=== PATIENT | male | born 1965 | race Caucasian/White ===

== ENCOUNTER 2017-05-22 07:40 | Observation (INO) | payer BC ==
[2017-05-21 12:16] LABS: BASOPHILS # (AUTO) 0.1 (0.0-0.1); BASOPHILS % 0.7 % (0.0-1.0); EOSINOPHILS # (AUTO) 0.3 (0.0-0.4); HEMATOCRIT 48.4 % (38.2-49.6); HEMOGLOBIN 16.9 g/dL (14.0-18.0); LYMPHOCYTES # (AUTO) 2.1 (1.0-3.2); LYMPHOCYTES % 20.2 % (18.0-39.1); MEAN CORPUSCULAR HEMOGLOBIN 32.6 pg (28-32); MEAN CORPUSCULAR HGB CONC 34.9 g/dL (31-35); MEAN CORPUSCULAR VOLUME 93.3 fL (81-99); MONOCYTES # (AUTO) 0.8 (0.2-0.8); MONOCYTES % 7.7 % (4.4-11.3); NEUTROPHILS # (AUTO) 6.9 (2.1-6.9); NEUTROPHILS % 67.8 % (38.7-80.0); PLATELET COUNT 264 x10e3/uL (140-360); RED BLOOD COUNT 5.19 x10e6/uL (4.3-5.7); RED CELL DISTRIBUTION WIDTH 12.5 % (11.7-14.4)
[2017-05-21 12:33] LABS: INR 1.05; PROTHROMBIN TIME 12.9 seconds (11.9-14.5)
[2017-05-21 12:34] LABS: PARTIAL THROMBOPLASTIN TIME 27.2 seconds (23.8-35.5)
--- NOTE | 2017-05-21 12:36 | Diagnostic Imaging Report ---
PROCEDURE: Frontal and lateral views of the chest. COMPARISON: None. INDICATIONS: PRE-OP FINDINGS: Lines/tubes: None. Lungs: The lungs are well inflated and clear. There is no evidence of pneumonia or pulmonary edema. Pleura: There is no pleural effusion or pneumothorax. Heart and mediastinum: The heart and the mediastinum are normal. Bones: No acute bony abnormality. IMPRESSION: 1. No acute cardiopulmonary disease. Isaac Hogan M.D. Dictated by: Isaac Hogan M.D. on 05/21/2017 at 12:36 Electronically approved by: Isaac Hogan M.D. on 05/21/2017 at 12:36
[2017-05-21 12:37] LABS: ANION GAP 14.3 mmol/L (8-16); BLOOD UREA NITROGEN 9 mg/dL (7-26); BUN/CREATININE RATIO 12 (6-25); CALCIUM 9.6 mg/dL (8.4-10.2); CARBON DIOXIDE 28 mmol/L (22-29); CHLORIDE 103 mmol/L (98-107); CREATININE, SERUM 0.77 mg/dL (0.72-1.25); EST GLOMERULAR FILTRATION RATE > 60 ML/MIN (60-); GLUCOSE 101 mg/dL (74-118); POTASSIUM 5.3 mmol/L (3.5-5.1); SODIUM 140 mmol/L (136-145)
[~2017-05-22] VITALS: Ht 182.9 cm; Wt 81.7 kg
[~2017-05-22 07:40] MED LIST: ACETAMINOPHEN 1000 MG/100 ML 100 ML IV ONE; LIDOCAINE HCL (LTA) 4 ML SOLN ONE; METHYLPREDNISOL40 MG PO; TYLENOL # 31 EA PO
--- OUTSIDE RECORDS SUMMARY | 2017-05-22 07:43 | XMS REPORT ---
Author Author [facility] Address Unknown Phone Unavailable Care Team Providers Care Supervising Floorperson Name Role Phone ANTONINO ALONSO Unavailable Unavailable Problems This patient has no known problems. Allergies, Adverse Reactions, Alerts This patient has no known allergies or adverse reactions. Medications This patient has no known medications. Results Test Description Test Time Test Comments Text Results Atomic Results Result Comments CHEST 2 VIEWS [place] [id number] [place] [id number] Patient Name: SONNY WILKERSON JR MR #: [id number] : 1965 Age/Sex: 51/M Req #: [id number] Adm Physician: Ordered by: ANTONINO ALONSO MD Report #: [id number] Location: OR Room/Bed: Procedure: [id number] DX/CHEST 2 VIEWS Exam Date: 05/21/17 Exam Time: 1200 REPORT STATUS: Signed PROCEDURE: Frontal and lateral views of the chest. COMPARISON: None. INDICATIONS: PRE-OP FINDINGS: Lines/tubes: None. Lungs: The lungs are well inflated and clear. There is no evidence of pneumonia or pulmonary edema. Pleura: There is no pleural effusion or pneumothorax. Heart and mediastinum: The heart and the mediastinum are normal. Bones: No acute bony abnormality. IMPRESSION: 1. No acute cardiopulmonary disease. Isaac Hogan M.D. Dictated by: Isaac Hogan M.D. on 05/21/2017 at 12:36 Electronically approved by: Isaac Hogan M.D. on 05/21/2017 at 12:36 Dictated By: SARAH HOGAN MD, MD [id number] COPY TO: ANTONINO ALONSO MD
[2017-05-22] MEDS ORDERED: GELATIN SPONGE SZ 100 ONE (07:50)
[2017-05-22] MEDS ORDERED: THROMBIN FOR SOLN 5,000 UNIT VIAL ONE (07:50)
[2017-05-22] MEDS ORDERED: BACITRACIN 50,000 UNIT VIAL ONE (07:50)
[2017-05-22] MEDS ORDERED: BUPIVACAINE 0.5%/EPI 30 ML SDV INJ ONE (07:50)
[2017-05-22] MEDS ORDERED: CEFAZOLIN SOD 1 GM VIAL ONE (07:59)
[2017-05-22] MEDS ORDERED: PROMETHAZINE HCL (IM) 25 MG/ML VIAL IM PRN (11:00)
[2017-05-22] MEDS ORDERED: ZOLPIDEM TARTRATE 5 MG TAB PO PRN (11:00)
[2017-05-22] MEDS ORDERED: ACETAMINOPHEN 325 MG TAB PO PRN (11:00)
[2017-05-22] MEDS ORDERED: MAGNESIUM/ALUMINUM/SIMETHICONE 30 ML UDC PO PRN (11:00)
[2017-05-22] MEDS ORDERED: CEPACOL SORE THROAT LOZENGES PO PRN (11:00)
[2017-05-22] MEDS ORDERED: MORPHINE SULFATE 2 MG/ML SYR IM PRN (11:00)
[2017-05-22] MEDS: DEXAMETHASONE SOD PHOS INJ 4 MG/ML VIAL IV SCH ×3 (12:16→23:58)
[2017-05-22] MEDS: OXYCODONE/ACETAMINOPHEN 5-325 1 EACH TABLET PO PRN (12:16)
[2017-05-22] MEDS: LACTATED RINGER'S 1,000 ML IV SCH ×2 (12:16→22:51)
[2017-05-22 12:20] VITALS: BP 132/74
[2017-05-22 12:35] VITALS: BP 132/74
[2017-05-22] MEDS ORDERED: CEFAZOLIN SOD 1 GM/NS 50ML 50 ML IV SCH (14:00)
--- NOTE | 2017-05-22 14:46 | Operative Report ---
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 POSTOPERATIVE DIAGNOSIS: C5-6 disk herniation and spondylosis with radiculopathy, M50.122. PROCEDURES 1. C5-6 anterior cervical diskectomy and microsurgical osteophyte resection and allograft fusion, 95085. 2. Preparation of MTF cortical cancellous allograft, 16148. 3. C5-6 anterior cervical plating with Synthes ZPN plate, 52006. ANESTHESIA: General. INDICATIONS: Patient is a 51-year-old man who presents with C5-6 spondylosis and chronic disk herniation and bilateral foraminal stenosis and was taken to the operating room for C5-6 anterior cervical decompression and fusion. DESCRIPTION OF PROCEDURE: After induction of general anesthesia, the patient was placed on the operating table in supine position. The right side of the neck was prepped and draped in sterile fashion. The fluoroscopic C-arm was positioned in cross-table lateral orientation. A transverse incision was created on the right side of the neck superimposed on the C5-6 disk space as determined by fluoroscopy. The platysma was divided in line with the incision. A subplatysmal dissection was carried out. An avascular plane of dissection was developed medial to sternocleidomastoid muscle and was followed medial to the carotid sheath to the anterior border of cervical spine. The deep cervical fascia was opened. The esophagus was retracted to the left. The attachments of longus coli muscles to anterolateral aspects of vertebral bodies of C5 and C6 were divided. The anterior longitudinal ligament was resected. Sebring posts were inserted into C5 and C6. The Sebring distractor was used distract the disk space. Anterior annulus of disk was incised with #11 blade. The contents of the disk were thoroughly evacuated with angled curettes and pituitary rongeurs. The posterior osteophytes were drilled with a 2-mm cutting bur until they were completely removed. The posterior annulus of the disk, herniated disk material, and the posterior longitudinal ligament were resected layer by layer until the dura was fully exposed and decompressed. The medial aspects of uncinate processes were resected to expose and decompress the origins of the C6 nerve roots bilaterally. After satisfactory decompression had been achieved, the endplates were prepared for fusion. The disk space was sized and found to be 8 mm in height. A piece of MTF cortical cancellous allograft measuring 8 mm in thickness was selected and prepared in saline and loaded onto a Synthes ZPN plate. The construct was inserted into the C5-6 disk space under lateral fluoroscopic guidance and tapped in place until it was flush with the anterior margin of the vertebral bodies. The plate was screwed to the endplates of C5 and C6 with 2 pairs of 14 mm screws. All screws were locked. The wound was irrigated with Bacitracin solution. Hemostasis was achieved. The platysma was closed with 3-0 Vicryl sutures. The skin was closed with 4-0 Monocryl sutures. Steri-Strips and dressing were applied. The patient was awakened and extubated in postanesthesia care unit in stable condition. No intraoperative complications were encountered. Estimated blood loss was 10 mL. Job#: [id number] SHENG
[2017-05-22] MEDS: ONDANSETRON HCL INJ 2 MG/ML VIAL IV PRN ×2 (15:20→23:58)
[2017-05-22] MEDS: CEFAZOLIN SOD 1 GM VIAL IV SCH ×2 (16:31→23:58)
[2017-05-22] MEDS ORDERED: LIDOCAINE HCL 2% LOCAL INJ 5 ML SDV VIAL INJ ONE (17:58)
[2017-05-22] MEDS ORDERED: DEXAMETHASONE SOD PHOS INJ 4 MG/ML VIAL ONE (17:58)
[2017-05-22] MEDS ORDERED: ROCURONIUM BROMIDE 10 MG/ML 5ML VIAL ONE (17:58)
[2017-05-22] MEDS ORDERED: ACETAMINOPHEN 1000 MG/100 ML IV ONE (17:58)
[2017-05-22] MEDS ORDERED: ONDANSETRON HCL INJ 2 MG/ML VIAL ONE (17:58)
[2017-05-22] MEDS ORDERED: PROPOFOL IV EMULSION 10 MG/ML 20 ML VIAL ONE (17:58)
[2017-05-22] MEDS ORDERED: SEVOFLURANE INHAL SOLN 250 ML PEN BTL ONE (17:58)
[2017-05-22] MEDS ORDERED: MIDAZOLAM HCL 2 MG/2 ML VIAL ONE (18:55)
[2017-05-22] MEDS ORDERED: FENTANYL CITRATE/PF 100MCG/2 ML INJ ONE (18:55)
[2017-05-22 19:40] VITALS: BP 132/74
[2017-05-22] MEDS: CARISOPRODOL 350 MG TAB PO PRN (19:59)
[2017-05-22 20:00] VITALS: BP 126/69
[2017-05-22 21:00] VITALS: BP 126/69
[2017-05-22] MEDS: HYDROMORPHONE 2MG/ML INJ IV PRN (23:58)
[2017-05-23] VITALS: BP 133/79
[2017-05-23 04:00] VITALS: BP 122/56
[2017-05-23] MEDS: LACTATED RINGER'S 1,000 ML IV SCH (05:55)
--- NOTE | 2017-05-23 07:02 | Diagnostic Imaging Report ---
C-SPINE 2 VIEWS AP LATERAL HISTORY: Postsurgical assessment COMPARISON: None FINDINGS: Bones: No displaced fracture. Patient is status post fusion of C5-6 anteriorly. Hardware is intact Osseous alignment is within normal limits. Joints: The joint spaces are well-maintained. Soft tissues: Minimal prevertebral soft tissue edema and emphysema. IMPRESSION: Stable hardware status post fusion of the lower cervical spine anteriorly with postsurgical edema and emphysema of the prevertebral soft tissues Signed by: Dr. Selvin Quinonez M.D. on 05/23/2017 6:58 AM
[2017-05-23 08:00] VITALS: BP 125/65
[2017-05-23] MEDS: OXYCODONE/ACETAMINOPHEN 5-325 1 EACH TABLET PO PRN (08:21)
[2017-05-23] MEDS: CEFAZOLIN SOD 1 GM VIAL IV SCH (08:21)
[2017-05-23] MEDS: CARISOPRODOL 350 MG TAB PO PRN (08:21)
[2017-05-23 08:51] VITALS: BP 125/65
[2017-05-23] MEDS: HYDROMORPHONE 2MG/ML INJ IV PRN (09:02)
[2017-05-23] MEDS ORDERED: NORCO 7.5-3251 EACH PO (10:21)
[2017-05-23 12:01] VITALS: BP 140/67
== END 2017-05-23 11:20 | disposition home or self-care (01) ==
LOC: OR 07:40 → IMCU 11:30
PROVIDERS: ADMIT Neurological Surgery; ATTEND Neurological Surgery
DX: M50.122 Cervical disc disorder at C5-C6 level with radiculopathy (principal); M47.22 Other spondylosis with radiculopathy, cervical region; I25.2 Old myocardial infarction; R12 Heartburn; F17.210 Nicotine dependence, cigarettes, uncomplicated; I10 Essential (primary) hypertension
CPT/HCPCS: 20931; 22551; 22845; 36415; 71046; 72040; 77003; 80048; 85025; 85610; 85730; 86850; 86900; 88304; 88311; 93005; 96374; 96376 ×2; C1713; G0378 ×2; J0690 ×2; J1100; J1170 ×2; J2001; J2250; J2270; J2405; J7120 ×2